=== PATIENT | male | born 1955 | race African-American/Black ===

== ENCOUNTER 2018-02-04 08:07 | Inpatient (IN) | payer MEDICAID ==
[~2018-02-04] VITALS: Ht 180.3 cm; Wt 80.3 kg
--- NOTE | 2018-02-04 08:15 | NUR ---
AAOX3, BIBRA FROM HOME C/O LEFT RIB CAGE PAIN, WORSE DURING DEEP INHALATION, DENIES ANY RECENT FALL OR INJURY. SKIN IS WARM AND DRY. PLACED ON THE MONITOR. AWAITING MD FOR EVAL. PROVIDED WARM BLANKET FOR COMFORT.
[2018-02-04] MEDS ORDERED: ONDANSETRON HCL/PF 4 MG/2 ML VIAL ONE (08:18)
[2018-02-04] MEDS ORDERED: MORPHINE SULFATE INJ 4 MG/ML DISP.SYRIN ONE ×2 (08:19→09:58)
[2018-02-04] MEDS ORDERED: MORPHINE SULFATE INJ 2 MG/ML DISP.SYRIN IV ONE ×2 (08:30→10:30)
[2018-02-04] MEDS ORDERED: ONDANSETRON HCL/PF 4 MG/2 ML VIAL IVP ONE (08:30)
[2018-02-04 08:39] LABS: BASOPHILS # (AUTO) 0.1 /CMM (0.0-0.2); BASOPHILS % (AUTO) 0.4 % (0.0-2.0); EOSINOPHILS % (AUTO) 1.1 % (0.0-6.0); HEMATOCRIT 38 % (39-51); HEMOGLOBIN 12.8 g/dL (13.5-17.5); LYMPHOCYTES # (AUTO) 2.1 /CMM (0.8-4.8); LYMPHOCYTES % (AUTO) 13.4 % (20.0-44.0); MEAN CORPUSCULAR HGB CONC 34 g/dl (31.0-36.0); MEAN CORPUSCULAR VOLUME 92 fL (80-96); MONOCYTES # (AUTO) 1.3 /CMM (0.1-1.30); NEUTROPHILS # (AUTO) 12.1 /CMM (1.8-8.9); NEUTROPHILS % (AUTO) 77.1 % (43.0-81.0); PLATELET COUNT (AUTO) 248 /CMM (150-450); RDW COEFFICIENT OF VARIATION 13.6 (11.5-15.0); RED BLOOD CELL COUNT(AUTO) 4.16 MIL/uL (4.5-6.0); WHITE BLOOD COUNT (AUTO) 15.6 K/uL (4.3-11.0)
[2018-02-04 08:55] LABS: CALCIUM, SERUM 8.5 mg/dL (8.5-10.1); CARBON DIOXIDE 28 mmol/L (21-32); CHLORIDE 100 mmol/L (98-107); CREATININE 1.3 mg/dL (0.6-1.3); GLUCOSE 101 mg/dL (74-106); POTASSIUM 3.8 mmol/L (3.5-5.1); SODIUM SERUM 136 mmol/L (136-145); UREA NITROGEN, BLOOD 13 mg/dL (7-18)
[2018-02-04 08:58] LABS: INR 1.1 (0.87-1.13)
[2018-02-04 09:03] LABS: TROPONIN I < 0.017 ng/mL (0.00-0.056)
[2018-02-04] MEDS ORDERED: CEFTRIAXONE 1GM BAG (ER ONLY) 50 ML IV ONE ×2 (09:28→09:30)
[2018-02-04] MEDS ORDERED: AZITHROMYCIN 500 MG in IV D5W 250 ML IV ONE (09:30)
[2018-02-04] MEDS ORDERED: TEST200V3 IM (09:34)
[2018-02-04] MEDS ORDERED: LEVO88TA5 PO (09:34)
[2018-02-04] MEDS ORDERED: HYDR20TA3 PO (09:34)
--- NOTE | 2018-02-04 09:45 | NUR ---
Patient is resting comfortably in bed with eyes closed. Easily aroused. VSS
[2018-02-04] MEDS ORDERED: LEVOFLOXACIN 750 MG /D5W 150ML 150 ML IV ONE (09:51)
[2018-02-04] MEDS ORDERED: CABE0.5T2 PO (09:59)
[2018-02-04] MEDS ORDERED: LEVOFLOXACIN 750 MG /D5W 150ML PIGGYBACK IV ONE (10:00)
--- NOTE | 2018-02-04 10:00 | NUR ---
DR WEAVER VERBALLY ORDERED IVP MORPHINE 4MG.
--- NOTE | 2018-02-04 10:20 | NUR ---
DR SIMS AT TALKING TO THE PATIENT AND FOR EVAL.
[2018-02-04] MEDS ORDERED: IV NS 0.9% 1,000 ML BAG IV ONE (10:30)
[2018-02-04] MEDS ORDERED: ONDANSETRON HCL/PF 4 MG/2 ML VIAL IVP PRN (11:00)
[2018-02-04] MEDS ORDERED: HYDROCODONE/APAP 5/325MG 1 EACH TABLET PO PRN (11:00)
[2018-02-04] MEDS: HYDROCORTISONE 20 MG TABLET PO SCH (11:00)
[2018-02-04] MEDS ORDERED: ALBUTEROL FS 2.5 MG/3 ML VIAL.NEB NEB PRN (11:00)
[2018-02-04] MEDS ORDERED: MAGNESIUM HYDROXIDE 30 ML UDC PO PRN (11:00)
[2018-02-04] MEDS ORDERED: ZOLPIDEM TARTRATE 5 MG TABLET PO PRN (11:00)
[2018-02-04] MEDS ORDERED: MAG HYDROX/AL HYDROX/SIMETH 30 ML UDC PO PRN (11:00)
[2018-02-04] MEDS ORDERED: Z GUARD REMEDY 2 OZ OINT TP PRN (11:00)
[2018-02-04] MEDS ORDERED: Medication Not On Formulary EA (Testosterone Cypionate 200 MG) IM SCH (11:00)
--- NOTE | 2018-02-04 11:15 | NUR ---
REPORT GIVEN TO SHI HAWLEY FOR DANNY MS 200.
[2018-02-04 11:55] VITALS: BP 138/56
[2018-02-04] MEDS: LEVOTHYROXINE SODIUM 88 MCG TABLET PO SCH (12:18)
[2018-02-04] MEDS: ENOXAPARIN SODIUM 40 MG/0.4 ML DISP.SYRIN SQ SCH (12:19)
[2018-02-04] MEDS ORDERED: MORPHINE SULFATE INJ 4 MG/ML DISP.SYRIN IV PRN (12:30)
--- NOTE | 2018-02-04 14:40 | NUR ---
MS RN ADMITTING NOTES PATIENT ADMITTED TO UNIT [facility] @ 1155 ALERT AND ORIENTED X4, AMBULATORY AND VERBALLY RESPONSIVE WITH NO C/O PAIN OR DISCOMFORTS AT THIS TIME. ORIENTED TO ROOM AND UNIT. V/S TAKEN: BP 138/56, P 95, R 20 T 97.8RF AND SP02 975. PT ON ROOM AIR, TOLERATING WELL WITH NO SOB NOTED. ASSESSMENT DONE FROM HEAD TO TOE, SKIN IS INTACT WITH IV ACCESS ON RIGHT AC G #20 INTACT AND PATENT, EASILY FLUSHED. BELONGINGS CHECKED, COUNTED AND FILED ON CHART. SAFETY MEASURES INITIATED. HOB BED ELEVATED. BED PLACED ON LOW AND LOCKED POSITION WITH UPPER SIDE-RAILS UP X2, CALL LIGHT AND BEDSIDE TABLE PLACED WITHIN EASY REACH OF PT. WILL CONTINUE TO MONITOR.
[2018-02-04] MEDS: IV NS 0.9% 1,000 ML IV PRN (14:56)
[2018-02-04 15:49] VITALS: BP 122/81
[2018-02-04] MEDS: ACETAMINOPHEN 325 MG TABLET PO PRN (16:07)
--- NOTE | 2018-02-04 16:10 | NUR ---
RN NOTES PT NOTED WITH ELEVATED TEMP OF 101F, COOLING MEASURES RENDERED AND PRN TYLENOL 650MG PO GIVEN ORDERED. WILL CONTINUE TO MONITOR.
--- NOTE | 2018-02-04 17:42 | NUR ---
RN NOTES PT REQUESTED TO HAVE TEMPERATURE RECHECKED AND WAS 98.9F AT THIS TIME. WILL CONTINUE TO MONITOR.
--- NOTE | 2018-02-04 18:29 | NUR ---
MS RN CLOSING NOTES PATIENT RESTING IN BED WATCHING TV. HOB ELEVATED. A/O X4, SAME ABLE TO MAKE NEEDS KNOWN. PT TOLERATING ROOM AIR, BREATHING EVEN WITH NO SOB NOTED. IVF OF NS @ 75ML/HR INFUSING VIA RIGHT AC G#20, NO SIGNS OF INFILTRATION OR REDNESS AT IV SITE NOTED. MAINTAINED BED IN LOW AND LOCKED POSITION. CALL LIGHT AND BEDSIDE TABLE KEPT WITHIN PT REACH. ALL NEEDS AND CARE ATTENDED WELL. WILL ENDORSED TO [employer] ENGINEER NURSE FOR DANNY.
--- NOTE | 2018-02-04 19:20 | NUR ---
MS RN OPENING NOTES RECEIVED PT RESTING IN BED WATCHING TV AT THIS TIME, A/O X4. NO SOB, BREATHING EVEN WITH NO SOB NOTED. IVF OF NS @ 75ML/HR INFUSING VIA RIGHT AC G#20, NO SIGNS OF INFILTRATION OR REDNESS AT IV SITE NOTED. ALL NEEDS ATTENDED AND MET, KEPT COMFORTABLE. NO C/O PAIN OR DISCOMFORT AT THIS TIME. CALL LIGHT WITHIN REACH. WILL CONTINUE TO MONITOR.
[2018-02-04 20:00] VITALS: BP 109/66
[2018-02-05] MEDS: ACETAMINOPHEN 325 MG TABLET PO PRN ×2 (00:47→12:59)
[2018-02-05] MEDS: MORPHINE SULFATE INJ 4 MG/ML DISP.SYRIN IV PRN ×3 (01:08→12:50)
--- NOTE | 2018-02-05 06:45 | NUR ---
MS RN OPENING NOTES PT IN BED, RESTING COMFORTABLE, AROUSES EASILY. A/O X4 AND VERBALLY RESPONSIVE. NO SOB, RESPIRATION IS EVEN AND UNLABORED. IVF OF NS @ 75ML/HR INFUSING VIA RIGHT AC G#20, NO SIGNS OF INFILTRATION OR REDNESS AT IV SITE NOTED. ALL NEEDS ATTENDED AND MET, KEPT COMFORTABLE. NO C/O PAIN OR DISCOMFORT AT THIS TIME. CALL LIGHT WITHIN REACH. WILL ENDORSE TO NEXT SHIFT ACCORDINGLY FOR DANNY.
[2018-02-05 07:13] LABS: BASOPHILS % (AUTO) 0.2 % (0.0-2.0); EOSINOPHILS % (AUTO) 0.1 % (0.0-6.0); HEMATOCRIT 37 % (39-51); HEMOGLOBIN 12.4 g/dL (13.5-17.5); LYMPHOCYTES # (AUTO) 2.1 /CMM (0.8-4.8); LYMPHOCYTES % (AUTO) 10.7 % (20.0-44.0); MEAN CORPUSCULAR HGB CONC 34 g/dl (31.0-36.0); MEAN CORPUSCULAR VOLUME 92 fL (80-96); MONOCYTES # (AUTO) 1.7 /CMM (0.1-1.30); MONOCYTES % (AUTO) 8.6 % (2.0-12.0); NEUTROPHILS # (AUTO) 15.5 /CMM (1.8-8.9); NEUTROPHILS % (AUTO) 80.4 % (43.0-81.0); PLATELET COUNT (AUTO) 256 /CMM (150-450); RDW COEFFICIENT OF VARIATION 13.1 (11.5-15.0); RED BLOOD CELL COUNT(AUTO) 3.99 MIL/uL (4.5-6.0); WHITE BLOOD COUNT (AUTO) 19.3 K/uL (4.3-11.0)
--- NOTE | 2018-02-05 07:30 | NUR ---
RN MS NOTES PT IN BED, ASLEEP, EASY TO AROUSE, ALERT AND ORIENTED, WITH COMPLAINT OF SLIGHT PAIN AT LEFT SIDE OF CHEST, NO FACIAL GRIMACING OR MOANING, RESPIRATIONS NORMAL. CALL LIGHT WITHIN REACH, NEEDS ATTENDED.
[2018-02-05 07:50] LABS: CREATININE 1.3 mg/dL (0.6-1.3); MAGNESIUM 1.7 mg/dL (1.8-2.4); PHOSPHORUS 2.5 mg/dL (2.5-4.9)
[2018-02-05 08:00] VITALS: BP 124/73
[2018-02-05] MEDS: LEVOTHYROXINE SODIUM 88 MCG TABLET PO SCH (08:13)
[2018-02-05] MEDS: HYDROCORTISONE 20 MG TABLET PO SCH (08:14)
[2018-02-05] MEDS: LEVOFLOXACIN 500 MG /D5W 100ML 500 MG in PREMIX 1 EA IV SCH (08:14)
[2018-02-05] MEDS: ENOXAPARIN SODIUM 40 MG/0.4 ML DISP.SYRIN SQ SCH (08:21)
[2018-02-05] MEDS: IV NS 0.9% 1,000 ML IV PRN (08:23)
[2018-02-05] MEDS: Magnesium 1GM/D5W 100ML PREMIX 100 ML IV SCH ×2 (11:05→12:00)
[2018-02-05] MEDS ORDERED: FUROSEMIDE 40 MG/4 ML VIAL IV ONE (12:00)
--- NOTE | 2018-02-05 12:31 | NUR ---
RN MS NOTES PT SEEN BY DR. SIMS, PLAN OF CARE DISCUSSED WITH PT, VERBALIZED UNDERSTANDING, ORDERS MADE AND CARRIED OUT.
[2018-02-05] MEDS ORDERED: CT SWABBABLE VALVE TRANS SET 1 EA INFUS.SET MC ONE (13:56)
[2018-02-05] MEDS ORDERED: IOHEXOL-300 100 ML VIAL IV ONE (13:56)
[2018-02-05] MEDS ORDERED: IV NS 0.9% 250 ML IV ONE (13:57)
--- NOTE | 2018-02-05 14:25 | NUR ---
RN MS NOTES RECEIVED CALL FROM DR. CARLOS, INFORMING OF PT'S CT PULMONARY ANGIOGRAM RESULTS, DR. LEVI KUMAR.
[2018-02-05] MEDS ORDERED: ENOXAPARIN SODIUM 40 MG/0.4 ML DISP.SYRIN SQ ONE (15:30)
[2018-02-05 15:46] VITALS: BP 114/72
--- NOTE | 2018-02-05 19:00 | NUR ---
RN MS NOTES PT IN BED, AWAKE, ALERT AND ORIENTED, NO COMPLAINT OF PAIN AT THIS TIME, NOT IN DISTRESS, PT OK TO SHOWER PER DR. SIMS, PM MEDS GIVEN ORDERED, ALL NEEDS ATTENDED.
[2018-02-05 20:00] VITALS: BP 144/89
[2018-02-05] MEDS: ENOXAPARIN SODIUM 80 MG/0.8 ML DISP.SYRIN SQ SCH (20:45)
[2018-02-06] MEDS: MORPHINE SULFATE INJ 4 MG/ML DISP.SYRIN IV PRN ×3 (03:30→21:43)
[2018-02-06 06:27] LABS: CALCIUM, SERUM 7.8 mg/dL (8.5-10.1); CREATININE 1.4 mg/dL (0.6-1.3); MAGNESIUM 2.1 mg/dL (1.8-2.4); POTASSIUM 3.8 mmol/L (3.5-5.1)
[2018-02-06 08:00] VITALS: BP 118/68
[2018-02-06] MEDS: LEVOFLOXACIN 500 MG /D5W 100ML 500 MG in PREMIX 1 EA IV SCH (08:17)
[2018-02-06] MEDS: LEVOTHYROXINE SODIUM 88 MCG TABLET PO SCH (08:17)
[2018-02-06] MEDS: ACETAMINOPHEN 325 MG TABLET PO PRN (08:18)
[2018-02-06] MEDS: HYDROCORTISONE 20 MG TABLET PO SCH (08:18)
[2018-02-06] MEDS: ENOXAPARIN SODIUM 80 MG/0.8 ML DISP.SYRIN SQ SCH ×2 (08:24→21:30)
--- NOTE | 2018-02-06 08:28 | NUR ---
MS RN OPENING NOTES PT IN BED, RESTING COMFORTABLY, A/O X4 AND VERBALLY RESPONSIVE. NO SOB, RESPIRATION IS EVEN AND UNLABORED, WHEEZING BILATERALLY. IN NO APPARENT DISTRESS, DENIES PAIN/DISCOMFORT AT THIS TIME. IVF OF NS @ 75ML/HR INFUSING VIA RIGHT AC G#20, MORNING VITALS STABLE HOWEVER TEMP OF 102.8, WARM TO TOUCH, IN NO VISIBLE DISTRESS . CALL LIGHT WITHIN REACH. WILL CONTINUE TO MONITOR.
--- NOTE | 2018-02-06 09:30 | NUR ---
MS/RN NOTES IMPLEMENTED COOLING MEASURES, ACETAMINOPHEN 650MG BY MOUTH GIVEN FOR TEMP ABOVE 100. POST INTERVENTION PATIENT TEMP TRENDED DOWN TO 99.9. PATIENT STABLE IN NO APPARENT DISTRESS, DISCOMFORT. WILL CONTINUE TO MONITOR
--- NOTE | 2018-02-06 13:15 | NUR ---
MS/RN NOTES PATIENT RECEIVING BREATHING TREATMENT FOR WHEEZING/SOB, RT AT BEDSIDE PROVIDING OPTIMAL RESPIRATORY COMFORT. WILL CONTINUE TO MONITOR
[2018-02-06 16:00] VITALS: BP 121/70
--- NOTE | 2018-02-06 18:36 | NUR ---
MS/RN NOTES PATIENT RESTING IN BED COMFORTABLY, NO SIGNIFICANT CHANGES IN CONDITION, VITAL SIGNS REMAIN STABLE, AFEBRILE. ALL DUE MEDICATIONS GIVEN , ALL NEEDS MET AND ATTENDED. ON OXYGEN VIA NC AT 2LPM SAT ABOVE 91%, RECEIVED BREATHING TREATMENT FOR SOB/WHEEZING. PATIENT INDEPENDENT IN ADLS. SAFETY MEASURES RENDERED, CALL LIGHT PLACED WITHIN EASY REACH. WILL CONTINUE TO MONITOR.
--- NOTE | 2018-02-06 19:15 | NUR ---
MS/RN OPENING NOTES PT RECEIVED AWAKE, SITTING UP IN BED. TALKING ON PHONE. A/OX3. ON ROOM AIR, BREATHING EVEN AND UNLABORED. NOTES SOME LEFT PRESSURE LIKE CHEST PAIN ON INSPIRATION, REFUSING PAIN MEDICATION AT THIS TIME. IV TO RAC PATENT AND INTACT. BED IN LOW/LOCKED POSITION WITH CALL LIGHT IN REACH. SIDE RAILS UPX2. WILL CONTINUE TO MONITOR
[2018-02-06 20:00] VITALS: BP 131/77
--- NOTE | 2018-02-06 21:00 | NUR ---
MS/RN NOTES ORAL TEMP NOTED, 99.1F. COOLING MEASURES IMPLEMENTED.
--- NOTE | 2018-02-07 07:00 | NUR ---
MS/RN CLOSING NOTES PT ASLEEP, EASILY AROUSABLE TO NAME. REMAINS ON ROOM AIR, BREATHING EVEN AND UNLABORED. NO ACUTE DISTRESS. NO C/O OF PAIN DURING SHIFT. PRN MORPHINE ADMINISTERED X1 DOSE. IV TO RAC PATENT AND INTACT. NO SIGNIFICANT CHANGES OVERNIGHT. KEPT PT COMFORTABLE DURING SHIFT. ALL NEEDS MET. BED IN LOW/LOCKED POSITION WITH CALL LIGHT IN REACH. SIDE RAILS UPX2. ENDORSED TO DAY SHIFT RN DANNY.
--- NOTE | 2018-02-07 07:45 | NUR ---
MS RN: INITIAL NOTE RECEIVED PT A/OX4. ON MS. NO DISTRESS NOTED. NO SOB NOTED. NO PAIN NOTED. CONTINENT. USES URINAL. AMBULATORY WITH OUT ASSIST. SKIN INTACT. R AC #20SL. SITE CLEAR AND PATENT. RESTING COMFORTABLY IN BED. CALL LIGHT WITHIN REACH.
[2018-02-07 08:17] VITALS: BP 120/73
[2018-02-07] MEDS: HYDROCORTISONE 20 MG TABLET PO SCH (08:20)
[2018-02-07] MEDS: LEVOTHYROXINE SODIUM 88 MCG TABLET PO SCH (08:20)
[2018-02-07] MEDS: LEVOFLOXACIN 500 MG /D5W 100ML 500 MG in PREMIX 1 EA IV SCH (08:20)
[2018-02-07] MEDS: ENOXAPARIN SODIUM 80 MG/0.8 ML DISP.SYRIN SQ SCH (08:23)
[2018-02-07] MEDS: MORPHINE SULFATE INJ 4 MG/ML DISP.SYRIN IV PRN (08:32)
[2018-02-07 10:23] LABS: BASOPHILS # (AUTO) 0.1 /CMM (0.0-0.2); BASOPHILS % (AUTO) 0.5 % (0.0-2.0); EOSINOPHILS % (AUTO) 0.6 % (0.0-6.0); HEMATOCRIT 32 % (39-51); HEMOGLOBIN 10.9 g/dL (13.5-17.5); LYMPHOCYTES # (AUTO) 1.1 /CMM (0.8-4.8); MEAN CORPUSCULAR HGB CONC 34 g/dl (31.0-36.0); MEAN CORPUSCULAR VOLUME 90 fL (80-96); MONOCYTES % (AUTO) 7.2 % (2.0-12.0); NEUTROPHILS # (AUTO) 11.3 /CMM (1.8-8.9); NEUTROPHILS % (AUTO) 83.7 % (43.0-81.0); PLATELET COUNT (AUTO) 264 /CMM (150-450); RDW COEFFICIENT OF VARIATION 13.4 (11.5-15.0); RED BLOOD CELL COUNT(AUTO) 3.58 MIL/uL (4.5-6.0); WHITE BLOOD COUNT (AUTO) 13.5 K/uL (4.3-11.0)
[2018-02-07 10:39] LABS: CALCIUM, SERUM 7.7 mg/dL (8.5-10.1); CREATININE 1.3 mg/dL (0.6-1.3); MAGNESIUM 2.1 mg/dL (1.8-2.4); PHOSPHORUS 2.6 mg/dL (2.5-4.9); POTASSIUM 3.9 mmol/L (3.5-5.1)
[2018-02-07] MEDS: RIVAROXABAN 15 MG TABLET PO SCH ×2 (12:15→23:18)
[2018-02-07 16:22] VITALS: BP 110/67
--- NOTE | 2018-02-07 18:40 | NUR ---
MS RN: CLOSING NOTE PT TOOK ALL MEDICATIONS ON TIME. NO ADVERSE REACTIONS NOTED. NO PAIN NOTED. NO SOB NOTED. ON ROOM AIR SATING AT 97%. A/OX4/ MS. BRP. AMBULATORY WITHOUT ASSIST. SKIN INTACT. REGULAR DIET. R AC #20 SL. SITE CLEAR AND PATENT. NO REDNESS OR BLEEDING NOTED. RESTING COMFORTABLY IN BED. CALL LIGHT WITHIN REACH.
--- NOTE | 2018-02-07 19:10 | NUR ---
MS/RN OPENING NOTES PT RECEIVED AWAKE, SITTING UP IN BED. ON ROOM AIR, BREATHING IS EVEN AND UNLABORED. DENIES SOB, IN NO OBVIOUS DISTRESS. CALM AND COOPERATIVE. IV TO RAC PATENT AND INTACT. BED IN LOW/LOCKED POSITION WITH CALL LIGHT IN REACH. SIDE RAILS UPX2. WILL CONTINUE TO MONITOR
[2018-02-07 20:00] VITALS: BP 111/66
--- NOTE | 2018-02-07 20:40 | NUR ---
MS/RN NOTES BILATERAL LOWER EXTREMITY VENOUS DUPLEX COMPLETED AT BEDSIDE. TECH NOTED POSITIVE LEFT COMMON FEMORAL DVT. NONA TABITHA MADE AWARE, PT CURRENTLY ON XARELTO 15MG PO Q12H, WAS ON 80MG OF LOVENOX Q12H WHICH WAS CHANGED EARLIER TODAY. NO NEW ORDERS AT THIS TIME.
--- NOTE | 2018-02-08 06:36 | NUR ---
MS/RN CLOSING NOTES PT AWAKE, RESTING COMFORTABLY IN BED. A/OX3. REMAINS ON ROOM AIR, BREATHING EVEN AND UNLABORED. DENIES SOB OR PAIN AT THIS TIME. NO S/S OF ACUTE DISTRESS NOTED. IV TO RAC PATENT AND INTACT. PT SLEPT WELL DURING THE NIGHT. NO SIGNIFICANT CHANGES DURING SHIFT. KEPT PT COMFORTABLE. MD AWARE ABOUT +DVT TO LEFT COMMON FEMORAL VEIN. NO NEW ORDERS, CONTINUE XARELTO ORDERED. BED IN LOW/LOCKED POSITION WITH CALL LIGHT IN REACH. SIDE RAILS UPX2. WILL ENDORSE TO DAY SHIFT RN DANNY.
[2018-02-08 06:42] LABS: BASOPHILS % (AUTO) 0.2 % (0.0-2.0); EOSINOPHILS % (AUTO) 2.4 % (0.0-6.0); HEMATOCRIT 33 % (39-51); HEMOGLOBIN 11.1 g/dL (13.5-17.5); LYMPHOCYTES # (AUTO) 1.6 /CMM (0.8-4.8); LYMPHOCYTES % (AUTO) 13.4 % (20.0-44.0); MEAN CORPUSCULAR HGB CONC 34 g/dl (31.0-36.0); MEAN CORPUSCULAR VOLUME 92 fL (80-96); MONOCYTES # (AUTO) 0.8 /CMM (0.1-1.30); MONOCYTES % (AUTO) 6.8 % (2.0-12.0); NEUTROPHILS # (AUTO) 9.1 /CMM (1.8-8.9); NEUTROPHILS % (AUTO) 77.2 % (43.0-81.0); PLATELET COUNT (AUTO) 295 /CMM (150-450); RDW COEFFICIENT OF VARIATION 13.3 (11.5-15.0); RED BLOOD CELL COUNT(AUTO) 3.56 MIL/uL (4.5-6.0); WHITE BLOOD COUNT (AUTO) 11.8 K/uL (4.3-11.0)
--- NOTE | 2018-02-08 07:10 | NUR ---
RN NOTES: PATIENT RESTING IN BED. NONLABORED BREATHING NOTED ON ROOM AIR. NO SIGNS OF DISTRESS NOTED. PATIENT AOX4. IV SITE ON RIGHT AC PATENT AND INTACT. BED IN LOWEST LOCKED POSITION. CALL LIGHT WITHIN REACH. WILL CONTINUE TO MONITOR
[2018-02-08 07:17] LABS: CALCIUM, SERUM 8.1 mg/dL (8.5-10.1); CREATININE 1.3 mg/dL (0.6-1.3); MAGNESIUM 2.2 mg/dL (1.8-2.4); PHOSPHORUS 2.4 mg/dL (2.5-4.9); POTASSIUM 3.7 mmol/L (3.5-5.1)
[2018-02-08] MEDS: LEVOTHYROXINE SODIUM 88 MCG TABLET PO SCH (07:55)
[2018-02-08] MEDS: MORPHINE SULFATE INJ 4 MG/ML DISP.SYRIN IV PRN ×3 (07:55→21:41)
[2018-02-08 08:00] VITALS: BP 116/70
[2018-02-08] MEDS: LEVOFLOXACIN 500 MG /D5W 100ML 500 MG in PREMIX 1 EA IV SCH (09:05)
[2018-02-08] MEDS: HYDROCORTISONE 20 MG TABLET PO SCH (09:10)
[2018-02-08] MEDS: RIVAROXABAN 15 MG TABLET PO SCH ×2 (09:11→21:42)
[2018-02-08] MEDS ORDERED: K PHOS NEUTRAL 250 MG TABLET PO ONE (13:00)
[2018-02-08 16:00] VITALS: BP 102/70
--- NOTE | 2018-02-08 19:49 | NUR ---
RN NOTES: PATIENT RESTING IN BED. NONLABORED BREATHING NOTED ON ROOM AIR. NO SIGNS OF DISTRESS NOTED. PATIENT AOX4. IV SITE ON RIGHT AC PATENT AND INTACT. BED IN LOWEST LOCKED POSITION. CALL LIGHT WITHIN REACH. DENYING CHEST PAIN AT THE MOMENT. STABLE DURING SHIFT. ENDORSED TO NEXT SHIFT
[2018-02-08 20:00] VITALS: BP 110/73
--- NOTE | 2018-02-09 07:30 | NUR ---
RN MS NOTES PT IN BED, AWAKE, ALERT AND ORIENTED, NOT IN DISTRESS, DOES NOT COMPLAIN OF ANY PAIN, RESPIRATIONS NORMAL, CALL LIGHT WITHIN REACH, NEEDS ATTENDED.
[2018-02-09 08:00] VITALS: BP 110/76
[2018-02-09] MEDS: LEVOFLOXACIN 500 MG /D5W 100ML 500 MG in PREMIX 1 EA IV SCH (08:24)
[2018-02-09] MEDS: RIVAROXABAN 15 MG TABLET PO SCH ×2 (08:25→21:32)
[2018-02-09] MEDS: HYDROCORTISONE 20 MG TABLET PO SCH (08:25)
[2018-02-09] MEDS: LEVOTHYROXINE SODIUM 88 MCG TABLET PO SCH (08:26)
--- NOTE | 2018-02-09 12:43 | NUR ---
RN MS NOTES PT IN BED, AWAKE, ALERT AND ORIENTED, PT SEEN BY DR. SIMS, ORDERS MADE AND CARRIED OUT, PLAN OF CARE DISCUSSED WITH PT, WITH SWELLING AT LEFT RING FINGER, MD AWARE, XRAY DONE, NEW MEDICATIONS ORDERED.
[2018-02-09] MEDS: COLCHICINE 0.6 MG TABLET PO PRN ×2 (14:24→21:31)
[2018-02-09 16:00] VITALS: BP 128/73
--- NOTE | 2018-02-09 18:13 | NUR ---
RN MS NOTES PT IN BED, AWAKE, ALERT AND ORIENTED, NO COMPLAINT OF PAIN, NOT IN DISTRESS, CALL LIGHT WITHIN REACH, TOLERATING CURRENT DIET WELL, CALL LIGHT WITHIN REACH, ALL NEEDS ATTENDED.
--- NOTE | 2018-02-09 19:12 | NUR ---
MS RN NOTES RECEIVED PT IN BED, AWAKE, A/0 X 4, WATCHING TV AT THIS TIME. VERBALLY RESPONSIVE. NO DISTRESS, NO SOB NOTED. RESPIRATION IS EVEN AND UNLABORED. IV SITE ON RIGHT AC INTACT AND PATENT, NO S/S OF INFILTRATION NOTED. DENIES ANY PAIN OR DISCOMFORT AT THIS TIME. ALL NEEDS ATTENDED AND MET. KEPT COMFORTABLE. CALL LIGHT WITHIN REACH. SAFETY PRECAUTIONS OBSERVED. WILL CONTINUE TO MONITOR.
[2018-02-09 20:00] VITALS: BP 120/78
[2018-02-09] MEDS ORDERED: COLCHICINE 0.6 MG TABLET ONE (21:22)
--- NOTE | 2018-02-10 | NUR ---
IV ON RIGHT HAND LEAKING, REMOVED, PRESSURES APPLIED, NO BLEEDING NOTED. INSERTED IV ON LFA X 1 ATTEMPT , WITH GOOD VENOUS RETURN. PT ENRRIQUE WELL.
--- NOTE | 2018-02-10 | NUR ---
IV ON RIGHT HAND LEAKING, REMOVED, PRESSURES APPLIED, NO BLEEDING NOTED. INSERTED IV ON LEFT HAND X 1 ATTEMPT , WITH GOOD VENOUS RETURN. PT ENRRIQUE WELL. Addendum: 02/10/18 at 0634 by DALLAS MOE RN INCORRECT DOCUMENTATION
[2018-02-10] MEDS: MORPHINE SULFATE INJ 4 MG/ML DISP.SYRIN IV PRN (01:46)
--- NOTE | 2018-02-10 06:29 | NUR ---
MS RN NOTES PT IN BED, RESTING COMFORTABLY AT THIS TIME, AROUSES EASILY, A/0 X 4. VERBALLY RESPONSIVE. NO DISTRESS, NO SOB NOTED. RESPIRATION IS EVEN AND UNLABORED. IV SITE ON LFA G#20 INTACT AND PATENT, NO S/S OF INFILTRATION NOTED. NO C/O ANY PAIN OR DISCOMFORT AT THIS TIME. ALL NEEDS ATTENDED AND MET. KEPT COMFORTABLE. CALL LIGHT WITHIN REACH. SAFETY PRECAUTIONS OBSERVED. WILL ENDORSE TO NEXT SHIFT FOR DANNY.
--- NOTE | 2018-02-10 07:05 | NUR ---
RN NOTES PT IS LAYING DOWN IN BED, SLEEPING COMFORTABLY. PT ON RA, RESPIRATIONS ARE EVEN AND UNLABORED. IV ON LFA INTACT AND SL. NO SIGNS OF DISTRESS NOTED. SAFETY MEASURES ARE IN PLACE, CALL LIGHT IS IN REACH. WILL CONTINUE TO MONITOR.
[2018-02-10 08:00] VITALS: BP 119/79
[2018-02-10] MEDS: LEVOTHYROXINE SODIUM 88 MCG TABLET PO SCH (08:10)
[2018-02-10] MEDS: HYDROCORTISONE 20 MG TABLET PO SCH (08:10)
[2018-02-10] MEDS: LEVOFLOXACIN 500 MG /D5W 100ML 500 MG in PREMIX 1 EA IV SCH (08:13)
[2018-02-10] MEDS: RIVAROXABAN 15 MG TABLET PO SCH (08:13)
[2018-02-10] MEDS ORDERED: Rivaroxaban PO (11:38)
[2018-02-10] MEDS ORDERED: LEVO500T75 PO (11:38)
--- NOTE | 2018-02-10 12:51 | NUR ---
RN NOTES PT WAS DISCHARGED HOME IN STABLE CONDITION. IV AND ID BAND WERE REMOVED. VITAL SIGNS ARE WNL, NO SIGNS OF DISTRESS NOTED. BELONGINGS WERE RETURNED TO PT AND DISCHARGE INSTRUCTIONS GIVEN. PT WAS GIVEN NEW PRESCRIPTION TO HAVE FILLED AT PREFERRED PHARMACY AND TO FOLLOW UP WITH PCP WITHIN 1-2 WEEKS OF DISCHARGE. PT VERBALIZED UNDERSTANDING AND SAID HE WOULD MAKE HIS OWN APPOINTMENT WITH DR. SIMS THIS WEEK.
== END 2018-02-10 12:50 | disposition home or self-care (01) | DRG 720 ==
LOC: ER 08:10 → MEDSG2 11:30
PROVIDERS: ADMIT Internal Medicine; ATTEND Internal Medicine
DX: A41.9 Sepsis, unspecified organism (principal); J96.01 Acute respiratory failure with hypoxia; I26.99 Other pulmonary embolism without acute cor pulmonale; J15.9 Unspecified bacterial pneumonia; F17.200 Nicotine dependence, unspecified, uncomplicated; I82.412 Acute embolism and thrombosis of left femoral vein; Z86.03 Personal history of neoplasm of uncertain behavior
CPT/HCPCS: 36415; 71045-TC; 73130-TC; 80048-TC; 83605-TC; 83735-TC; 84100-TC; 84484-TC; 84550-TC; 85025-TC; 85730-TC; 87040-TC; 87081-TC; 93970-TC; A4216; A4606; J0456; J0696; J1650; J1940; J1956; J2270; J2405; J3475; J7030; J7040; J7050; J7060; Q9967; Z7610